=== PATIENT | female | born 1930 | race Caucasian/White ===

== ENCOUNTER 2019-09-23 16:55 | Emergency (ER) | payer MEDICARE ==
[~2019-09-23 16:55] MED LIST: METO50TA18 PO
== END 2019-09-23 17:52 | disposition home or self-care (01) ==
LOC: EDH 16:55
DX: Z00.01 Encounter for general adult medical examination with abnormal findings (principal); I10 Essential (primary) hypertension; Z90.710 Acquired absence of both cervix and uterus